=== PATIENT | male | born 1975 | race African-American/Black ===

== ENCOUNTER 2016-12-27 11:55 | Day surgery (SDC) | payer BC ==
[~2016-12-27] VITALS: Ht 193 cm; Wt 226.0 kg
[2016-12-27] VITALS (10 sets, daily range): BP systolic 128–150; BP diastolic 67–90; PULSE 66–82; RESP 15–20; Ht 193 cm; Wt 226.0 kg
[2016-12-27] MEDS ORDERED: FENTAnyl 50 MCG/ML VIAL ONE (14:01)
[2016-12-27] MEDS ORDERED: MIDAZOLAM 1 MG/ML 2 ML INJ ONE (14:01)
[2016-12-27] MEDS ORDERED: PROPOFOL 40 ML ONE (14:19)
[2016-12-27] MEDS ORDERED: LIDOCAINE 2% (SDV) 5 ML INJ ONE (14:19)
--- NOTE | 2016-12-27 14:25 | OPR ---
Date/Time of Note Date/Time of Note DATE: 12/27/16 TIME: 14:17 Operative Report Procedure Date: Dec 27, 2016 Preoperative Diagnosis She has not been to undergo bariatric surgery for obesity Performed to rule out peptic ulcer disease to rule out esophageal pathology Postoperative Diagnosis Diffuse mild gastritis Operation Performed EGD Surgeon: WILLIE LARA MD Anesthesia Type: MAC Anesthesiologist: FAVIOLA HOOK MD Estimated Blood Loss: none Transfusion Required: no Specimens Gastric biopsy to rule out H. pylori infection Grafts/Implants: none Complications: no Pt Condition Post Procedure: stable Indications Peptic ulcer disease patient is scheduled to undergo gastric bypass Operative\Procedure Findings After the informed written consent is obtained the patient was asked to lay on the left lateral side Intravenous anesthesia was given by anesthesiologist Dr. Hook The patient become somnolent Olympus video upper endoscope was introduced into the oropharynx into the esophagus Esophagus appeared normal Sope was advanced into the stomach stomach showed evidence of a linear areas of erythema in the distal half of the stomach patchy areas of erythema noted in the stomach as well. Biopsy was obtained from Fundus and antrum of the stomach to rule out H. pylori infection Duodenum appear normal scope was withdrawn procedure was terminated Recommend wait for the pathology report Omeprazole 40 mg a day cc WILLIE Mckeon MD Dec 27, 2016 14:25
== END 2016-12-27 15:45 | disposition home or self-care (01) ==
LOC: GIL 11:55 → SDS 11:55 → GIL 15:45
PROVIDERS: ATTEND Internal Medicine Gastroenterology
DX: K29.60 Other gastritis without bleeding (principal); E66.01 Morbid (severe) obesity due to excess calories; Z68.44 Body mass index [BMI] 60.0-69.9, adult
CPT/HCPCS: 43239; J2250; J3010